=== PATIENT | male | born 1940 ===

== ENCOUNTER → 2019-08-16 | Outpatient (CLI) | payer OTHER, BC | LOC: SJCVC 11:32 | PROVIDERS: ATTEND Internal Medicine | DX: R94.31 Abnormal electrocardiogram [ECG] [EKG] (principal); I25.10 Atherosclerotic heart disease of native coronary artery without angina pectoris; E11.9 Type 2 diabetes mellitus without complications; E78.5 Hyperlipidemia, unspecified; J44.9 Chronic obstructive pulmonary disease, unspecified; G47.33 Obstructive sleep apnea (adult) (pediatric); Z90.49 Acquired absence of other specified parts of digestive tract; Z79.899 Other long term (current) drug therapy ==

== ENCOUNTER → 2020-08-07 | Outpatient (CLI) | payer OTHER, BC ==
--- NOTE | 2020-08-10 10:11 | LINQ ---
[facility] [place] [address] LINQ PROCEDURE REPORT Name: DIXON HOLLY Room #: REG CHEN Boogie#: [id number] Admission: 08/07/20 Attend Phys: True Arredondo Discharge: Date of : 42 Report #: [id number] THIS REPORT FOR: cc: Jamie Sol MD, David P. MD Lammoglia, Francisco J. MD ~ APPROVED REPORT Study performed: 08/07/2020 14:06:31 Patient Status: Out-Patient Room #: Event Personnel: True Arredondo MD Exam: Linq Insertion Indications: Afib The patient is a 80 year-old male with a history of Palpitations cryptic stroke with possible paroxysmal atrial fibrillation. Implanted Devices: [employer]: Reveal LINQ; Model #LNQ11; SN #[id number]; Use by: 2021-03-25 Procedure The patient underwent informed consent. We discussed the details of the procedure including the risks, which include, but not limited to bleeding, infection, vascular damage, cardiac perforation, and pneumothorax. The left chest was prepped and draped in usual sterile manner. Utilizing 1% lidocaine a 25-gauge needle the skin wheal was raised with a lidocaine. Utilizing a small spinal needle then the proposed tract was anesthetized with lidocaine cane. Utilizing 11 blade a small incision was made and a pocket was generated utilizing both sharp and blunt dissection. The device was then deployed with the deployment tool without difficulty. No significant bleeding was noted hemostasis was rapidly achieved. The subcutaneous tissue was then closed with 2 simple interrupted sutures and the skin was closed with a 3-0 Vicryl running subcuticular. Dermabond was placed on the skin surface Steri-Strips 4 x 4 OpSite were placed. There were no complications Complications The patient tolerated the procedure well and there were no complications associated with the procedure. [address] [address] [place]. [place]. [place]n PROCEDURE REPORT Name: ELAYNEDIXON Room #: [id number] Admission: 08/07/20 Attend Phys: True Dempsey Discharge: Date of : 42 Report #: [id number] Findings Estimated Blood Loss: 0 mls Conclusion 1. Successful insertion of a implantable loop recorder Recommendations 1. Routine post loop recorder in surgeon protocol <ELECTRONICALLY SIGNED> By: True Arredondo MD 08/10/20 1011 1011 1011 True Arredondo MD /INF
== END | disposition home or self-care (01) ==
LOC: CATH 09:40
PROVIDERS: ATTEND Internal Medicine
DX: I48.91 Unspecified atrial fibrillation (principal); R00.2 Palpitations; Z86.73 Personal history of transient ischemic attack (TIA), and cerebral infarction without residual deficits; Z79.01 Long term (current) use of anticoagulants

== ENCOUNTER → 2020-08-21 | Outpatient (CLI) | payer OTHER, BC | LOC: RAD 10:36 | PROVIDERS: ATTEND Internal Medicine | DX: R06.02 Shortness of breath (principal) ==

== ENCOUNTER → 2020-08-24 | Outpatient (CLI) | payer OTHER, BC | LOC: LAB 13:27 | PROVIDERS: ATTEND Internal Medicine | DX: Z01.812 Encounter for preprocedural laboratory examination (principal); Z20.822 Contact with and (suspected) exposure to COVID-19 ==

== ENCOUNTER → 2020-08-29 | Outpatient (CLI) | payer OTHER, BC ==
--- NOTE | ~2020-08-29 | PFR/MVV ---
[facility] [place] [address] PULMONARY FUNCTION MVV/REPORT Name: ELAYNEDIXON Room #: REG LISBETMindi Meeks.#: [id number] Admission: 08/29/20 Attend Phys: James Baez MD Discharge: Date of : 42 Report #: [id number] THIS REPORT FOR: //name// >> SPIROMETRY: (BTPS) Height: 71 in cm Weight: 250 lbs kg Exam Date: 08/29/20 PRE-RX POST-RX PRED BEST %PRED BEST %PRED %CHG FVC LITERS . 4.14 . 3.31 . 80 . 3.51 . 85 . 6 FEV1 LITERS . 2.65 . 2.38 . 90 . 2.44 . 92 . 3 FEV1/FVC % . 66 . 72 . 108 . 69 . 105 . -3 ZGZ76-66% L/Sec . 2.25 . 1.52 . 68 . 1.41 . 63 . -7 PEF L/SEC . 7.95 . 8.34 . 105 . 7.85 . 99 . -6 FEF50/FIF50 UNITLESS . <1.00 . . . 2.77 . . MVV L/Min . . . f 1/Min . . . >> LUNG VOLUMES: (BTPS) PRE-RX POST-RX PRED AVG %PRED AVG %PRED %CHG VC Liters . 4.14 . 3.49 . 84 . . . TLC Liters . 6.38 . 5.97 . 94 . . . RV Liters . 2.69 . 2.48 . 92 . . . RV/TLC % . 44 . 42 . 95 . . . FRC PL Liters . 3.20 . 2.69 . 84 . . . FRC N2 Liters . 3.20 . . . . . ERV Liters . 1.43 . 0.22 . 15 . . . IC Liters . 2.86 . 3.28 . 115 . . . >> DIFFUSION: DLCO ml/Min/mmHg . 23.6 . 18.3 . 78 . . . DL [place] ml/Min/mmHg . 23.6 . 18.3 . 78 . . . DLCO/VA ml/Min/mmHg . 3.34 . 4.55 . 136 . . . VA Liters . . 4.02 . . . . COMMENTS: COMMENTS: >> RESISTANCE: [facility] [address] [place] [address] PULMONARY FUNCTION MVV/REPORT Name: DIXON HOLLY Room #: REG [facility].#: [id number] Admission: 08/29/20 Attend Phys: James Baez MD Discharge: Date of : 42 Report #: [id number] PRE-RX PRED AVG %PRED Raw Total cmH20/L/Sec . . 4.79 . Raw Insp cmH20/L/Sec . . 5.69 . Raw Exp cmH20/L/Sec . . 6.52 . Raw cmH20/L/Sec . 1.45 . 2.26 . 156 Gaw L/Sec/cmH20 . 0.767 . 0.443 . 58 sRaw cmH20 Sec . 4.63 . 8.65 . 187 sGaw l/cmH20 Sec . 0.216 . 0.116 . 53 Vtq Liters . . 3.83 . # = OUTSIDE 95% CONFIDENCE INTERVAL CALIBRATION: PRED: 3.00 ACTUAL: EXP 3.01 INSP 3.02 [facility]-10-06 [facility]- N-[id number] >> INTERPRETATION/IMPRESSION: DATE OF SERVICE: 08/29/2020 PULMONARY FUNCTION STUDY ATTENDING PHYSICIAN: James Baez MD SPIROMETRY: FEV1 is 2.38 liters (90% predicted), FVC is 3.31 liters (80% predicted). FEV1/FVC ratio is 72%. Postbronchodilator response is with no significance. LUNG VOLUMES: Total lung capacity is 5.97 liters (94%). RV is 2.48 liters (92% predicted). Diffusing capacity 78%. IMPRESSION: Pulmonary function studies are consistent with a borderline obstructive airflow defect with no significant response to bronchodilator therapy. Lung volumes are normal. Diffusing capacity is normal. By: Ervin Cook MD /nt
== END ==
LOC: PUL 10:22
PROVIDERS: ATTEND Internal Medicine
DX: J44.9 Chronic obstructive pulmonary disease, unspecified (principal)

== ENCOUNTER → 2021-03-13 | Outpatient (CLI) | payer OTHER, BC | LOC: SJCVC 10:22 | PROVIDERS: ATTEND Internal Medicine | DX: I48.0 Paroxysmal atrial fibrillation (principal); I10 Essential (primary) hypertension; E78.5 Hyperlipidemia, unspecified; R07.9 Chest pain, unspecified; Z79.899 Other long term (current) drug therapy; J44.9 Chronic obstructive pulmonary disease, unspecified; E11.9 Type 2 diabetes mellitus without complications; G47.33 Obstructive sleep apnea (adult) (pediatric); Z72.89 Other problems related to lifestyle; Z87.891 Personal history of nicotine dependence ==